=== PATIENT | female | born 1990 | race Caucasian/White ===

== ENCOUNTER 2019-07-03 02:26 | Emergency (ER) | payer OTHER ==
[~2019-07-03] VITALS: Ht 177.8 cm; Wt 68.0 kg
[2019-07-03 02:32] VITALS: BP 145/92
[2019-07-03] MEDS ORDERED: CYCLOBENZAPRINE 10 MG TABLET PO ONE (03:00)
[2019-07-03] MEDS ORDERED: KETOROLAC TROMETHAMINE INJ 60 MG/2 ML VIAL IM ONE (03:00)
[2019-07-03] MEDS ORDERED: KETOROLAC TROMETHAMINE INJ 30 MG/ML VIAL ONE (03:04)
[2019-07-03] MEDS ORDERED: CYCLOBENZAPRINE 10 MG TABLET ONE (03:04)
== END 2019-07-03 03:31 | disposition home or self-care (01) ==
LOC: ER 02:30
DX: M79.18 Myalgia, other site (principal); M54.5 Low back pain; M25.511 Pain in right shoulder
CPT/HCPCS: 73030; 96372; 99283; J1885